=== PATIENT | female | born 1985 | race Caucasian/White ===

== ENCOUNTER → 2016-11-09 | Outpatient (CLI) | payer OTHER ==
[~2016-11-09] MED LIST: GADOBUTROL 10 ML VIAL IVP ONE
--- NOTE | 2016-11-09 21:19 | MR ---
MRI of the Brain (Without and With Contrast) History: Multiple sclerosis. Contrast: I 0.5 mL intravenous Gadavist, without complication. Technique: Sagittal T1 and postcontrast FLAIR imaging through the whole brain. Axial T1 (pre- and pos tcontrast), fast T2 2nd echo, FLAIR and diffusion imaging through the whole brain. Findings: There are multiple, bilateral, periventricular deep and superficial white matter foci of T2 -weighted hyperintensity consistent with a multifocal demyelinating process such as multiple sclerosi s. No new lesions are identified. None of the lesions are associated with gadolinium enhancement or r educed diffusion. An unusual cystic lesion in the left insular region there is stable in size measuri ng 15 x 11 mm, and continues to have a nonenhancing FLAIR , uniformly thick ,peripheral ring appearan ce on FLAIR imaging only. There is no evidence for hemorrhage. None of the lesions enhance after gado linium administration. No lesions are identified in the posterior fossa. The craniocervical junction is normal. Impression: Findings consistent with a stable x7 months, multifocal demyelinating process.
== END ==
LOC: FIMAGING 19:02
PROVIDERS: ATTEND Psychiatry & Neurology Neurology
DX: G37.9 Demyelinating disease of central nervous system, unspecified (principal)
CPT/HCPCS: A9585

== ENCOUNTER → 2017-12-16 | Outpatient (CLI) | payer OTHER | LOC: FIMAGING 07:52 | PROVIDERS: ATTEND Psychiatry & Neurology Neurology | DX: G37.9 Demyelinating disease of central nervous system, unspecified (principal) ==